=== PATIENT | female | born 1970 | race Caucasian/White ===

== ENCOUNTER 2022-12-09 16:46 | Emergency (ER) | payer OTHER ==
[~2022-12-09] VITALS: Ht 160 cm; Wt 64.0 kg
[~2022-12-09 16:46] MED LIST: BENADRYL25 MG PO; LESCOL20 MG; MEDROL4 MG PO; PEPCID40 MG PO; ZETIA10 MG
[2022-12-09] MEDS ORDERED: SYNTHROID125 MCG PO (17:48)
[2022-12-09 19:14] LABS: URINE APPEARANCE Clear; URINE BILIRRUBIN Negative (NEGATIVE); URINE BLOOD Negative; URINE COLOR Yellow; URINE GLUCOSE Negative (NEGATIVE); URINE LEUKOCYTE Small; URINE NITRATE Negative; URINE PROTEIN Trace (NEGATIVE)
[2022-12-09 19:17] LABS: URINE BACTERIA 76.8 uL (0.0-1933); URINE EPITHELIAL CELLS 17.6 uL (0.0-38.8); URINE RBC 9.4 uL (0.0-20.8); URINE WBC 48.3 uL (0.0-23.2)
[2022-12-09 19:18] LABS: HEMATOCRIT 36.6 % (36.0-45.00); HEMOGLOBIN 12.5 g/dL (12.0-15.00); MEAN CELL VOLUME 85.7 fL (80.00-100.00); MEAN CORPUSCULAR HEMOGLOBIN 29.1 pg (27.00-32.0); PLATELET COUNT 218 K/uL (150-450); RED BLOOD COUNT 4.27 M/uL (4.00-6.00); RED CELL DISTRIBUTION WIDTH 13.3 % (11.5-14.5)
[2022-12-09 19:28] LABS: CALCIUM 8.7 mg/dL (8.5-10.1); CREATININE SERUM 1.1 mg/dL (0.55-1.02); GFR 51.76; POTASSIUM 3.57 mEq/L (3.5-5.1)
[2022-12-09] MEDS ORDERED: DICY20TA PO (22:44)
[2022-12-09] MEDS ORDERED: PEPCID20 MG PO (22:44)
[2022-12-09] MEDS ORDERED: INTESTINEX680 M1 PO (22:44)
== END 2022-12-09 22:52 | disposition home or self-care (01) ==
LOC: ER 16:46
PROVIDERS: General Practice
DX: K52.9 Noninfective gastroenteritis and colitis, unspecified (principal); E03.9 Hypothyroidism, unspecified; Z88.8 Allergy status to other drugs, medicaments and biological substances